=== PATIENT | male | born 2000 ===

== ENCOUNTER 2019-07-08 17:52 | Emergency (ER) | payer SELFPAY ==
[2019-07-08 18:47] VITALS: BP 127/68
[2019-07-08] MEDS ORDERED: IBUPROFEN 600 MG TAB PO ONE ×2 (18:49)
--- NOTE | 2019-07-08 18:50 | Event Note ---
ED Screening Note Date of service: 07/08/19 Time: 18:46 ED Screening Note: 18 yo male c/o cough congestion shortness of breath x 1 month. He denies any PMH. Denies nausea vomiting or diarrhea no recent travels no known sick contacts. This initial assessment/diagnostic orders/clinical plan/treatment(s) is/are subject to change based on patients health status, clinical progression and re- assessment by fellow clinical providers in the ED. Further treatment and workup at subsequent clinical providers discretion. Patient/guardian urged not to elope from the ED as their condition may be serious if not clinically assessed and managed. Initial orders include: Chest xray
[2019-07-08] MEDS: IPRATROPIUM/ALBUTEROL SULFATE 3 ML AMPUL.NEB IH SCH ×2 (19:21→20:19)
--- NOTE | 2019-07-08 19:42 | XRay Report ---
CHEST 2 VIEWS INDICATION / CLINICAL INFORMATION: sob/cough. COMPARISON: None available. FINDINGS: SUPPORT DEVICES: None. HEART / MEDIASTINUM: No significant abnormality. LUNGS / PLEURA: No significant pulmonary or pleural abnormality. No pneumothorax. ADDITIONAL FINDINGS: No significant additional findings. IMPRESSION: 1. No acute findings. Signer Name: Louis Galicia MD Signed: 07/08/2019 7:38 PM Workstation Name: [id number]
--- NOTE | 2019-07-08 21:01 | Emergency Department Report ---
Minor Respiratory - HPI Chief Complaint: Dyspnea/Respdistress Stated Complaint: CHEST PAIN/TERESITA Time Seen by Provider: 07/08/19 19:40 Pain Location: Nose Severity: moderate Minor Respiratory: Yes Able to Tolerate Fluids, Yes Cough, Yes Fever, No Rhinorrhea, No Sore Throat, No Ear Pain, No Sick Contacts, No Hemoptysis, No Chest Pain, No Shortness of Breath Other History: This is a 18-year-old male with no prior medical history who presents to ED complaining of intermittent in nonproductive cough for the past month. Patient states that he to some [id number] cough medication with no relief. Patient has no history of asthma. Patient stated that the past 2 weeks he's notices been given some fever. He denies nausea vomiting abdominal pain ED Review of Systems ROS: Stated complaint: CHEST PAIN/TERESITA Other details as noted in HPI Comment: All other systems reviewed and negative ED Past Medical Hx - Past Medical History Previous Medical History?: No - Surgical History Past Surgical History?: No - Social History Smoking Status: Never Smoker Substance Use Type: None - Medications Home Medications: Home Medications Medication Instructions Recorded Confirmed Last Taken Type Azithromycin [Zithromax Z-JOSETTE] 250 mg PO DAILY #6 tablet 07/08/19 Unknown Rx Ibuprofen [Motrin] 800 mg PO Q8HR #30 tab 07/08/19 Unknown Rx Minor Respiratory Exam - Exam General: Vital signs noted. No distress. Alert and acting appropriately. HEENT: Yes Moist Mucous Membranes, No Pharyngeal Erythema, No Pharyngeal Exudates, No Rhinorrhea, No Conjuctival Injection, No Frontal Tenderness, No Maxillary Tenderness Ear: Neither TM Bulge, Neither TM Erythema, Neither EAC Pain, Neither EAC Discharge Neck: Yes Supple, No Adenopathy Lungs: Yes Good Air Exchange, No Wheezes, No Ronchi, No Stridor, No Cough, No Labored Respirations, No Retractions, No Use of Accessory Muscles, No Other Abnormal Lung Sounds Heart: Yes Regular, No Murmur Abdomen: Yes Normal Bowel Sounds, No Tenderness, No Peritoneal Signs Skin: No Rash, No Edema Neurologic: Alert and oriented, no deficits. Musculoskeletal: Unremarkable. ED Course Vital Signs 07/08/19 07/08/19 18:45 19:20 Temperature 102.8 F H Pulse Rate 125 H Pulse Rate [ 117 H Anterior Bilateral Throughout] Respiratory 16 Rate Respiratory 22 Rate [Anterior Bilateral Throughout] Blood Pressure 127/68 O2 Sat by Pulse 96 Oximetry ED Medical Decision Making - Lab Data Temp Pulse Resp BP Pulse Ox 99.0 F 78 16 127/68 97 07/08/19 21:52 07/08/19 21:52 07/08/19 21:52 07/08/19 18:45 07/08/19 21:52 - Radiology Data Radiology results: report reviewed, image reviewed Fluoro Time In Minutes: CHEST 2 VIEWS INDICATION / CLINICAL INFORMATION: sob/cough. COMPARISON: None available. FINDINGS: SUPPORT DEVICES: None. HEART / MEDIASTINUM: No significant abnormality. LUNGS / PLEURA: No significant pulmonary or pleural abnormality. No pneumothorax. ADDITIONAL FINDINGS: No significant additional findings. IMPRESSION: 1. No acute findings. Signer Name: Louis Galicia MD Signed: 07/08/2019 7:38 PM Workstation Name: [id number] Transcribed By: ELVIA Dictated By: Louis Galicia MD Electronically Authenticated By: Louis Galicia MD Signed Date/Time: 07/08/19 193 - Medical Decision Making This 18-year-old male presents to ED with upper respiratory infection Fever resolved during the ED stay. ED course: Patient received a breathing treatment, prednisone, cough suppressant in the ED. Chest x-ray ordered, chest x-ray shows no acute findings. Patient had no respiratory distress in the ED. Post treatment evaluation: No wheezing heard, no use of accessory muscles, I discussed with the patient to follow up with her primary care physician. I discussed with the patient will be going home on with albuterol inhaler a Vital signs are normalized, patient is saturation at 99% on room air. I discussed with the patient is symptoms worsen to return to ED immediately. Patient received breathing treatments while in the ED. Discussed with mother symptomatic relief with [id number] medications. Discussed continue Tylenol and Motrin as needed for fever and pain. Critical care attestation.: If time is entered above; I have spent that time in minutes in the direct care of this critically ill patient, excluding procedure time. ED Disposition Clinical Impression: Viral syndrome, Upper respiratory infection Disposition: [id number] TO HOME OR SELFCARE Is pt being admited?: No Does the pt Need Aspirin: No Condition: Stable Instructions: Asthma (ED), Upper Respiratory Infection (ED), Viral Syndrome (ED) Additional Instructions: Make sure to follow up with the primary care physician as discussed. Take all your medications as you've been prescribed. If you have any worsening symptoms or develop new symptoms please return to ED immediately. Prescriptions: Ibuprofen [Motrin] 800 mg PO Q8HR #30 tab Azithromycin [Zithromax Z-JOSETTE] 250 mg PO DAILY #6 tablet Referrals: [facility] [Outside] - 3-5 Days [facility] [Outside] - 3-5 Days Forms: Accompanied Note, Work/School Release Form(ED) Time of Disposition: 22:21
== END 2019-07-08 22:30 | disposition home or self-care (01) ==
LOC: ED 17:52
DX: J06.9 Acute upper respiratory infection, unspecified (principal); B34.9 Viral infection, unspecified
CPT/HCPCS: 71046; 94640; 94644